=== PATIENT | female | born 1985 | race Caucasian/White ===

== ENCOUNTER 2018-12-28 13:49 | Day surgery (SDC) | payer OTHER ==
[~2018-12-28] VITALS: Ht 167.6 cm; Wt 59.2 kg
[~2018-12-28 13:49] MED LIST: CEPH500 PO; CRUTCH2 USE; FAMO20 PO; GI COCKTAIL PO; HYDACE5 PO; HYDHCL25 PO; HYDR1TAB94 PO; HYOS.125 SL; IBUP600 PO; IBUP800 PO; Norco 5-325 Ta1 EACH PO; ONDA4 PO; PHENERGAN25 MG RC; PROC10 PO; PROM25 PO; Pepcid20 MG PO; Pepcid40 MG PO; Prilosec20 MG PO; Protonix40 MG PO; SUCR1 PO; SUMA25 PO; TRAM50 PO; Zofran Odt8 MG PO
[2018-12-28] MEDS ORDERED: PROM25 (14:16)
--- NOTE | 2018-12-28 15:43 | NUR ---
12/28/18 1543 Mercedes Serrano S VITAL SIGNS CHARTED BY ORSC.NSC. ORSC[employer]RXS WAS SIGNED IN COMPUTER AT THE TIME SO WAS ACCIDENTALLY CHARTED ON HER NAME, [email or web address].
== END 2018-12-28 15:30 | disposition home or self-care (01) ==
LOC: ORSCSDS 13:49
PROVIDERS: Internal Medicine Gastroenterology
PROC: 0DB68ZX Excision of Stomach, Via Natural or Artificial Opening Endoscopic, Diagnostic (ICD-10-PCS; principal; 2018-12-28 15:00)
DX: R10.13 Epigastric pain (principal); R63.4 Abnormal weight loss; R11.2 Nausea with vomiting, unspecified; B96.81 Helicobacter pylori [H. pylori] as the cause of diseases classified elsewhere; K29.70 Gastritis, unspecified, without bleeding; F17.210 Nicotine dependence, cigarettes, uncomplicated; J45.909 Unspecified asthma, uncomplicated; Z79.899 Other long term (current) drug therapy
CPT/HCPCS: 88305; 88342; J2250; J2704; J7120

== ENCOUNTER → 2020-04-18 | Outpatient (CLI) | payer OTHER ==
[~2020-04-18] MED LIST changes: +PROM25
[2020-04-20 19:06] LABS: HPV 16 Negative (Negative); HPV 18 Negative (Negative); HPV OTHER HR TYPES Negative (Negative)
== END | disposition home or self-care (01) ==
LOC: LAB 16:25 → LAB SHORT 16:25
PROVIDERS: Obstetrics & Gynecology
DX: Z01.419 Encounter for gynecological examination (general) (routine) without abnormal findings (principal)
CPT/HCPCS: 87624; G0123

== ENCOUNTER 2021-01-23 06:24 | Emergency (ER) | payer OTHER ==
[~2021-01-23] VITALS: Ht 167.6 cm; Wt 54.9 kg
[2021-01-23 07:57] LABS: BASOPHILS ABSOLUTE AUTO 0.07 K/mm3 (0.00-0.23); BASOPHILS PERCENT AUTO 1 % (0-2); EOSINOPHILS ABSOLUTE AUTO 0.36 K/mm3 (0.00-0.68); EOSINOPHILS PERCENT AUTO 5 % (0-6); Hematocrit 40.5 % (33.0-51.0); Hemoglobin 13.9 g/dL (11.5-16.0); IMMATURE GRAN ABSOLUTE AUTO 0.01 K/mm3 (0.00-0.10); IMMATURE GRAN PERCENT AUTO 0 % (0-1); LYMPHOCYTES ABSOLUTE AUTO 3.18 K/mm3 (0.84-5.20); LYMPHOCYTES PERCENT AUTO 42 % (21-46); MONOCYTES PERCENT AUTO 7 % (4-13); Mean Corpuscular HGB 34.8 pg (26.0-34.0); Mean Corpuscular HGB Conc 34.3 g/dL (31.5-36.5); Mean Corpuscular Volume 101 fL (80-100); Mean Platelet Volume 9.6 fL (9.1-12.4); NEUTROPHILS ABSOLUTE AUTO 3.46 K/mm3 (1.96-9.15); NEUTROPHILS PERCENT AUTO 46 % (41-73); Platelet Count 278 K/mm3 (150-400); RDW Coefficient Variation 11.8 % (11.7-14.2); RDW Standard Deviation 43.9 fL (35.1-46.3); White Blood Cell Count 7.58 K/mm3 (4.00-11.30)
[2021-01-23 08:16] LABS: Alanine Aminotransfer (ALT/SGP 28 U/L (12-78); Albumin, Blood 3.5 g/dL (3.4-5.0); Albumin/Globulin Ratio 1.2 (0.8-1.8); Alk Phos 88 U/L (50-136); Anion Gap 4 mmol/L (6-16); Aspartate Aminotrans (AST/SGOT 17 U/L (12-37); Bilirubin, Total 0.7 mg/dL (0.1-1.0); Blood Urea Nitrogen 10 mg/dL (8-24); Bun/Creatinine Ratio 14.6 (12.0-20.0); CO2, Blood 27 mmol/L (21-32); Calcium, Blood 8.6 mg/dL (8.5-10.1); Chloride, Blood 109 mmol/L (98-108); Cholesterol 127 mg/dL (50-200); Creatinine, Blood 0.69 mg/dL (0.40-1.00); Glomerular Filtration Rate >60 (60-); Glucose, Blood 103 mg/dL (70-99); Potassium, Blood 3.3 mmol/L (3.5-5.5); Sodium, Blood 140 mmol/L (136-145); Total Protein, Blood 6.5 g/dL (6.4-8.2); Triglycerides 64 mg/dL (30-140)
[2021-01-23] MEDS ORDERED: ONDA4ODT MM (08:43)
[2021-01-23] MEDS ORDERED: Roxicodone5 MG PO (08:43)
== END 2021-01-23 09:31 | disposition home or self-care (01) ==
LOC: ER 06:24
PROVIDERS: Emergency Medicine
DX: K85.90 Acute pancreatitis without necrosis or infection, unspecified (principal); J45.909 Unspecified asthma, uncomplicated; E11.9 Type 2 diabetes mellitus without complications; F17.200 Nicotine dependence, unspecified, uncomplicated
CPT/HCPCS: 36415; 76705; 80053; 82465; 83690; 84478; 84703; 85025; 96374; 96375; 99284-25; A9270; J1885; J2405; J7030

== ENCOUNTER 2021-03-03 13:54 | Observation (INO) | payer OTHER ==
[~2021-03-03] VITALS: Ht 167.6 cm; Wt 59.0 kg
[~2021-03-03 13:54] MED LIST changes: +ONDA4ODT MM; +Roxicodone5 MG PO
[2021-03-03 14:24] LABS: BASOPHILS ABSOLUTE AUTO 0.07 K/mm3 (0.00-0.23); BASOPHILS PERCENT AUTO 1 % (0-2); EOSINOPHILS ABSOLUTE AUTO 0.25 K/mm3 (0.00-0.68); EOSINOPHILS PERCENT AUTO 3 % (0-6); Hematocrit 37.4 % (33.0-51.0); Hemoglobin 13.2 g/dL (11.5-16.0); IMMATURE GRAN ABSOLUTE AUTO 0.02 K/mm3 (0.00-0.10); IMMATURE GRAN PERCENT AUTO 0 % (0-1); LYMPHOCYTES ABSOLUTE AUTO 2.87 K/mm3 (0.84-5.20); LYMPHOCYTES PERCENT AUTO 31 % (21-46); MONOCYTES ABSOLUTE AUTO 0.69 K/mm3 (0.16-1.47); MONOCYTES PERCENT AUTO 8 % (4-13); Mean Corpuscular HGB 35.2 pg (26.0-34.0); Mean Corpuscular HGB Conc 35.3 g/dL (31.5-36.5); Mean Corpuscular Volume 100 fL (80-100); NEUTROPHILS ABSOLUTE AUTO 5.34 K/mm3 (1.96-9.15); NEUTROPHILS PERCENT AUTO 58 % (41-73); Platelet Count 290 K/mm3 (150-400); RDW Coefficient Variation 11.5 % (11.7-14.2); RDW Standard Deviation 41.9 fL (35.1-46.3); Red Blood Cell Count 3.75 M/mm3 (3.80-5.20); White Blood Cell Count 9.24 K/mm3 (4.00-11.30)
[2021-03-03 14:44] LABS: Alanine Aminotransfer (ALT/SGP 33 U/L (12-78); Albumin, Blood 3.2 g/dL (3.4-5.0); Albumin/Globulin Ratio 1.1 (0.8-1.8); Alk Phos 90 U/L (50-136); Anion Gap 3 mmol/L (6-16); Aspartate Aminotrans (AST/SGOT 26 U/L (12-37); Bilirubin, Total 0.8 mg/dL (0.1-1.0); Blood Urea Nitrogen 9 mg/dL (8-24); Bun/Creatinine Ratio 13.5 (12.0-20.0); CO2, Blood 26 mmol/L (21-32); Chloride, Blood 108 mmol/L (98-108); Creatinine, Blood 0.67 mg/dL (0.40-1.00); Ethanol (Alcohol), Blood, Med <3 mg/dL; Free Thyroxine 0.97 ng/dL (0.70-1.60); Glomerular Filtration Rate >60 (60-); Glucose, Blood 128 mg/dL (70-99); Potassium, Blood 3.7 mmol/L (3.5-5.5); Salicylate 2.3 mg/dL (2.8-20.0); Sodium, Blood 137 mmol/L (136-145); Total Protein, Blood 6.2 g/dL (6.4-8.2)
[2021-03-03 14:56] LABS: Acetaminophen, Random 101.7 ug/mL (10.0-30.0)
[2021-03-03 15:31] LABS: SARS-Cov-2 (COVID-19) PCR, MMC NEGATIVE (NEGATIVE)
[2021-03-03] MEDS ORDERED: SERT50 PO (19:33)
--- NOTE | 2021-03-04 03:07 | NUR ---
SHIFT SUMMARY A/OX3, PT SLEEPING MOST OF SHIFT. MOD SI PRECAUTIONS IN PLACE, PT DENIES ANY SUICIDAL THOUGHTS AT THIS TIME. LABILE MOOD WITH BRIEF PERIODS OF AGITATION D/T SI PRECAUTIONS AND POLICIES. VSS, NO ACUTE CHANGES AT THIS TIME. BED IN LOWEST POSITION WITH CALL LIGHT IN REACH. WILL CONTINUE TO MONITOR AND REPORT TO ONCOMING RN.
--- NOTE | 2021-03-04 06:06 | NUR ---
PT REFUSING AM LABS
--- NOTE | 2021-03-04 09:31 | NUR ---
UPDATE 03/04/21: PT. PRESENTED TO ED YESTERDAY VIA EMS AFTER OD OF TRAZADONE AND TYLENOL. PER CHART REVIEW, PT. INFORMED DR. WATKINS THAT OD WAS UNINTENTIONAL AND THAT SHE WAS HAVING A "BAD DAY." PT. WAS PLACED ON APPROPRIATE PRECAUTIONS DUE TO CONCERN FOR POTENTIAL RISK OF SI. [facility] [place] EVAL REQUESTED BY DR. WATKINS. PER CHART REVIEW, THIS AM PT. HAS REFUSED LABS. PT. HAS BEEN AGITATED THROUGHOUT HER HOSPITAL STAY. ACCUSING STAFF OFF TAKING HER PHONE AND FRUSTRATED WITH THE NEED FOR SAFETY PRECAUTIONS. PT. HAS BEEN IN CONTACT WITH HER . PT. POTENTIALLY APPROPRIATE FOR D/C WITHIN THE NEXT 24-48 HOURS. ANTICIPATE NEEDS AT TIME OF DISCHARGE TO INCLUDE: HOSPITAL F/U WITHIN 5-7 DAYS WITH PCP AND C F/U APPOINTMENT.
[2021-03-04 10:49] LABS: Source, Urine Clean Catch
[2021-03-04 10:54] LABS: Appearance, Urine Clear (Clear); Bilirubin, Urine Neg (Neg); Blood, Urine Neg (Neg); Color, Urine Yellow (P-Yellow); Glucose Qualitative, Urine Neg (Neg); Ketones, Urine Neg (Neg); Leukocyte Esterase, Urine Neg (Neg); Nitrite, Urine Neg (Neg); Protein, Urine Neg (Neg); Urobilinogen, Urine NORM (Normal)
--- NOTE | 2021-03-04 12:51 | NUR ---
Suicide safety charley interview and Plan completed. Pt reports "it was stupid" amnd is glad she did not . No previous attempts. Father found her being drowsy and called for help. 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 She relapsed in last month. She has 3 children 15, 10,9 and lives with her of 20 years. She does have anxiety issues and feels she has isolated herself to just "cookng and cleaning". She reports hisory of various family members that have from suicide, and her estranged mother was an addict. She reports her huusband and her were fighting prior to the attempt, as he learned of ehr relapse. Both had been in recovery. Brief counseling regarding deep breathing, strengths identification. She is interested in individual counseling. Recommend [facility] fol[facility]ow up appointment to be made prior to DC, with emphasis in substance abuse. Pt has ceased activities she used to enjoy of attending druze, attending [facility]. Pt was tearful at times when discussing how she has "lost herself" and does not engage in any activities that are just for her. Plan given to patient. Shelly Dunbar M.Ed., [facility], Behavior Health Director.
--- NOTE | 2021-03-04 13:01 | NUR ---
Patient was involved in safety planning and very open to planning for her wellness. She was afraid of having to attend groups, and voiced relief that individual therapy was available. She prefers if she could be seen in [place]. Pt reported she had just woken up this am when blood draw tried. She said she was not nice, and felt bad -but was glad the labs could be drawn again.
[2021-03-04 14:46] LABS: Acetaminophen, Random <2.0 ug/mL (10.0-30.0); Alanine Aminotransfer (ALT/SGP 36 U/L (12-78); Albumin, Blood 3.6 g/dL (3.4-5.0); Albumin/Globulin Ratio 0.9 (0.8-1.8); Alk Phos 103 U/L (50-136); Anion Gap 4 mmol/L (6-16); Aspartate Aminotrans (AST/SGOT 26 U/L (12-37); Bilirubin, Total 0.7 mg/dL (0.1-1.0); Blood Urea Nitrogen 9 mg/dL (8-24); Bun/Creatinine Ratio 12.4 (12.0-20.0); CO2, Blood 28 mmol/L (21-32); Calcium, Blood 8.4 mg/dL (8.5-10.1); Chloride, Blood 108 mmol/L (98-108); Creatinine, Blood 0.73 mg/dL (0.40-1.00); Globulin, Blood 3.8 g/dL (2.2-4.0); Glomerular Filtration Rate >60 (60-); Glucose, Blood 87 mg/dL (70-99); Potassium, Blood 3.5 mmol/L (3.5-5.5); Sodium, Blood 140 mmol/L (136-145); Total Protein, Blood 7.4 g/dL (6.4-8.2)
--- NOTE | 2021-03-04 15:00 | NUR ---
Spoke with Behavioral Health Director Shelly Dunbar regarding her care this am. Patient was pleasant evaluation during [facility] eval. Advised that she has experienced a relapse with methamphetamine use roughly 30 days ago after 7 years clean. Had argument yesterday with her regarding relapse which led to OD. Pt. open to one on one substance abuse canceling. Declines group sessions. Per Shelly, pt. likely to be released from a psych standpoint as she has declined and intent to harm herself at this time. She is also seeking help. Patient's father Larry called to check on patient. He advised that he will provide transport for pt. if her is unavailable when she is discharged. Pt. note yet appropriate for discharge from clinical standpoint. Pt. declined blood draw this am. Is now agreeable to have labs drawn. Anticipated needs at time of discharge to include: Substance abuse counseling through [facility] ([facility] preferred) and hospital F/U with PCP within 5-7 days post discharge.
--- NOTE | 2021-03-04 15:47 | NUR ---
PT IS ALERT ORIENTED X 4, PT DENIES PAIN,N/V,SOB,AND ANY SUICIDAL IDEAS,VERY PLEASANT AND COORPORATIVE, PT STATED IT WAS A STUPID IDEA . PT IS IN BED,BED IN LOW POSITION, WILL CONTINUE TO MONITOR
--- NOTE | 2021-03-04 16:59 | NUR ---
Per Dr. Wynn, pt. appropriate for discharge. I was unable to make it to patient's room prior to discharge. Pt. will need appt. with [facility] for substance abuse counceling and hospital F/U with PCP within the next 5-7 days. DARLENE team and PCP notified.
[2021-03-04 19:22] LABS: U Amphetamine Screen DETECTED; U Barbituate Screen Not Detected; U Benzodiazapine Screen Not Detected; U Buprenorphine Screen Not Detected; U Cannabinoids Screen DETECTED; U Cocaine Screen Not Detected; U Methadone Screen Not Detected; U Methamphetamine Screen DETECTED; U Opiates Screen Not Detected; U Oxycodone Screen Not Detected; U Phencyclidine Screen Not Detected; U Propoxyphene Screen Not Detected
== END 2021-03-04 16:39 | disposition home or self-care (01) ==
LOC: ER 13:54 → MEDS 13:55
PROVIDERS: Emergency Medicine; Internal Medicine; ADMIT Family Medicine
DX: T43.211A Poisoning by selective serotonin and norepinephrine reuptake inhibitors, accidental (unintentional), initial encounter (principal); T39.1X1A Poisoning by 4-Aminophenol derivatives, accidental (unintentional), initial encounter; R41.82 Altered mental status, unspecified; F12.90 Cannabis use, unspecified, uncomplicated; F19.10 Other psychoactive substance abuse, uncomplicated; Z91.040 Latex allergy status; J45.909 Unspecified asthma, uncomplicated; E11.9 Type 2 diabetes mellitus without complications; F17.210 Nicotine dependence, cigarettes, uncomplicated; Z63.8 Other specified problems related to primary support group; Z20.822 Contact with and (suspected) exposure to COVID-19
CPT/HCPCS: 36415; 80053; 81003; 84439; 84443; 85025; 93005; 93010; G0480; J7030; U0004

== ENCOUNTER → 2021-03-05 | Outpatient (CLI) | payer OTHER ==
[~2021-03-05] MED LIST changes: +SERT50 PO
== END | disposition home or self-care (01) ==
LOC: LAB SHORT 18:50 → LAB 18:50
DX: Z51.81 Encounter for therapeutic drug level monitoring (principal); Z79.899 Other long term (current) drug therapy
CPT/HCPCS: G0480

== ENCOUNTER → 2021-03-13 | Outpatient (CLI) | payer OTHER ==
[2021-03-13 13:29] LABS: Source, Urine Clean Catch
[2021-03-13 14:26] LABS: Bacteria Not Seen /hpf; Red Blood Cells, Urine Rare /hpf (0-2); Squamous Epithelial Cells Many /hpf (Few); White Blood Cells, Urine 0-2 /hpf (0-5)
== END | disposition home or self-care (01) ==
LOC: LAB 13:22 → LAB SHORT 13:22
PROVIDERS: Family Medicine
DX: R10.9 Unspecified abdominal pain (principal); Z79.899 Other long term (current) drug therapy
CPT/HCPCS: 81015

== ENCOUNTER 2021-11-30 22:27 | Inpatient (IN) | payer OTHER ==
[~2021-11-30] VITALS: Ht 167.6 cm; Wt 59.0 kg
[~2021-11-30 22:27] MED LIST changes: +BUPRENORPHIN-N1 EAC1 SL; +DICY20 PO; +PROM12.5S PR
[2021-11-30 22:55] LABS: BASOPHILS ABSOLUTE AUTO 0.05 K/mm3 (0.00-0.23); BASOPHILS PERCENT AUTO 0 % (0-2); EOSINOPHILS ABSOLUTE AUTO 0.33 K/mm3 (0.00-0.68); EOSINOPHILS PERCENT AUTO 3 % (0-6); Hematocrit 37.1 % (33.0-51.0); Hemoglobin 12.5 g/dL (11.5-16.0); IMMATURE GRAN ABSOLUTE AUTO 0.05 K/mm3 (0.00-0.10); IMMATURE GRAN PERCENT AUTO 0 % (0-1); LYMPHOCYTES ABSOLUTE AUTO 2.06 K/mm3 (0.84-5.20); LYMPHOCYTES PERCENT AUTO 18 % (21-46); MONOCYTES ABSOLUTE AUTO 0.78 K/mm3 (0.16-1.47); MONOCYTES PERCENT AUTO 7 % (4-13); Mean Corpuscular HGB Conc 33.7 g/dL (31.5-36.5); Mean Corpuscular Volume 101 fL (80-100); Mean Platelet Volume 8.5 fL (9.1-12.4); NEUTROPHILS ABSOLUTE AUTO 8.52 K/mm3 (1.96-9.15); NEUTROPHILS PERCENT AUTO 72 % (41-73); Platelet Count 617 K/mm3 (150-400); RDW Coefficient Variation 12.7 % (11.7-14.2); Red Blood Cell Count 3.68 M/mm3 (3.80-5.20); White Blood Cell Count 11.79 K/mm3 (4.00-11.30)
[2021-11-30 23:14] LABS: Albumin, Blood 2.6 g/dL (3.4-5.0); Albumin/Globulin Ratio 0.6 (0.8-1.8); Bilirubin, Total 0.5 mg/dL (0.1-1.0); Bun/Creatinine Ratio 11.7 (12.0-20.0); Calcium, Blood 9.1 mg/dL (8.5-10.1); Creatinine, Blood 0.6 mg/dL (0.40-1.00); Globulin, Blood 4.6 g/dL (2.2-4.0); Potassium, Blood 3.7 mmol/L (3.5-5.5); Total Protein, Blood 7.2 g/dL (6.4-8.2)
[2021-12-01 01:06] LABS: Bilirubin, Urine Neg (Neg); Blood, Urine Neg (Neg); Glucose Qualitative, Urine Neg (Neg); Ketones, Urine Neg (Neg); Leukocyte Esterase, Urine Neg (Neg); Nitrite, Urine Neg (Neg); Protein, Urine 1+ (Neg); Urobilinogen, Urine NORM (Normal)
[2021-12-01 01:12] LABS: Appearance, Urine Clear (Clear); Color, Urine Yellow (P-Yellow)
[2021-12-01 03:48] LABS: Influenza A, PCR NEGATIVE (NEGATIVE); Influenza B, PCR NEGATIVE (NEGATIVE); Resp Syncytial Virus, PCR NEGATIVE (NEGATIVE); SARS-Cov-2 (COVID-19) PCR, MMC NEGATIVE (NEGATIVE)
[2021-12-01 04:54] LABS: BASOPHILS ABSOLUTE AUTO 0.06 K/mm3 (0.00-0.23); BASOPHILS PERCENT AUTO 1 % (0-2); EOSINOPHILS ABSOLUTE AUTO 0.36 K/mm3 (0.00-0.68); EOSINOPHILS PERCENT AUTO 3 % (0-6); Hematocrit 33.7 % (33.0-51.0); IMMATURE GRAN ABSOLUTE AUTO 0.05 K/mm3 (0.00-0.10); IMMATURE GRAN PERCENT AUTO 1 % (0-1); LYMPHOCYTES ABSOLUTE AUTO 2.28 K/mm3 (0.84-5.20); LYMPHOCYTES PERCENT AUTO 22 % (21-46); MONOCYTES ABSOLUTE AUTO 0.68 K/mm3 (0.16-1.47); MONOCYTES PERCENT AUTO 6 % (4-13); Mean Corpuscular HGB 33.5 pg (26.0-34.0); Mean Corpuscular HGB Conc 32.6 g/dL (31.5-36.5); Mean Corpuscular Volume 103 fL (80-100); Mean Platelet Volume 8.8 fL (9.1-12.4); NEUTROPHILS ABSOLUTE AUTO 7.16 K/mm3 (1.96-9.15); NEUTROPHILS PERCENT AUTO 68 % (41-73); Platelet Count 545 K/mm3 (150-400); RDW Coefficient Variation 12.6 % (11.7-14.2); RDW Standard Deviation 47.8 fL (35.1-46.3); Red Blood Cell Count 3.28 M/mm3 (3.80-5.20); White Blood Cell Count 10.59 K/mm3 (4.00-11.30)
[2021-12-01 05:17] LABS: Albumin, Blood 2.1 g/dL (3.4-5.0); Albumin/Globulin Ratio 0.6 (0.8-1.8); Bilirubin, Total 0.6 mg/dL (0.1-1.0); Bun/Creatinine Ratio 10.8 (12.0-20.0); Calcium, Blood 8.1 mg/dL (8.5-10.1); Creatinine, Blood 0.56 mg/dL (0.40-1.00); Globulin, Blood 3.7 g/dL (2.2-4.0); Potassium, Blood 3.3 mmol/L (3.5-5.5); Total Protein, Blood 5.8 g/dL (6.4-8.2)
--- NOTE | 2021-12-01 07:47 | NUR ---
summary pt admitted per er with distended abd and pain post surgery earlier in week for perforated ulcer-surery was in [place]. pt groggy.answere some questions then falls to sleep.pt inconsistent with answers at time. i was completing admit assess and computer locked me out. will not allow me back in-day rn bela to complete. pt reports if surgery was needed, she would want to go back to [place] for sugery.day rn aware.
--- NOTE | 2021-12-01 15:58 | NUR ---
SHIFT SUMMARY PT A&OX4, VSS/RA, ZOE PO CLEAR LIQUID DIET, VOIDING WELL, 3 BMS TODAY. PAIN MANAGED WITH 5 MG OXY AND 25 FENT Q4 PRN. ADMITTED FOR POSTOP ILEUS AND ABSCESS, GEN SURGERY CONSULT: NO SURGICAL INTERVENTION PLANNED AT THIS TIME. PT IS POD6 PERF GASTRIC ULCER, HAS NICOLÁS MIDLINE LAB[employer] BEAM HOUSE; SURGERY DONE [facility]. WILL REPORT TO ONCOMING NOC RN.
[2021-12-01] MEDS ORDERED: PANTOPRAZOLE SO40 M1 PO (16:37)
[2021-12-01] MEDS ORDERED: Acetaminophen650 M1 PO (16:38)
[2021-12-01] MEDS ORDERED: Bentyl20 MG PO (16:40)
[2021-12-01] MEDS ORDERED: CEFD300 PO (16:40)
[2021-12-01] MEDS ORDERED: METR500 PO (16:41)
[2021-12-01] MEDS ORDERED: OXYC5 PO (16:42)
[2021-12-01] MEDS ORDERED: VORI200 PO (16:43)
[2021-12-02 03:55] LABS: BASOPHILS ABSOLUTE AUTO 0.06 K/mm3 (0.00-0.23); BASOPHILS PERCENT AUTO 1 % (0-2); EOSINOPHILS PERCENT AUTO 3 % (0-6); Hematocrit 34.1 % (33.0-51.0); Hemoglobin 11.2 g/dL (11.5-16.0); IMMATURE GRAN ABSOLUTE AUTO 0.03 K/mm3 (0.00-0.10); IMMATURE GRAN PERCENT AUTO 0 % (0-1); LYMPHOCYTES ABSOLUTE AUTO 2.22 K/mm3 (0.84-5.20); LYMPHOCYTES PERCENT AUTO 23 % (21-46); MONOCYTES ABSOLUTE AUTO 0.58 K/mm3 (0.16-1.47); MONOCYTES PERCENT AUTO 6 % (4-13); Mean Corpuscular HGB 33.5 pg (26.0-34.0); Mean Corpuscular HGB Conc 32.8 g/dL (31.5-36.5); Mean Corpuscular Volume 102 fL (80-100); Mean Platelet Volume 8.4 fL (9.1-12.4); NEUTROPHILS ABSOLUTE AUTO 6.53 K/mm3 (1.96-9.15); NEUTROPHILS PERCENT AUTO 67 % (41-73); Platelet Count 621 K/mm3 (150-400); RDW Coefficient Variation 12.5 % (11.7-14.2); RDW Standard Deviation 46.9 fL (35.1-46.3); Red Blood Cell Count 3.34 M/mm3 (3.80-5.20); White Blood Cell Count 9.72 K/mm3 (4.00-11.30)
[2021-12-02 04:19] LABS: Bun/Creatinine Ratio 6.4 (12.0-20.0); Calcium, Blood 8.5 mg/dL (8.5-10.1); Creatinine, Blood 0.47 mg/dL (0.40-1.00); Potassium, Blood 4.2 mmol/L (3.5-5.5)
--- NOTE | 2021-12-02 06:09 | NUR ---
PT HAVING BMS TONIGHT.ALTHOUGH,STILL REQUIRING IV PAIN MEDS AT TIMES AND IV ZOFRAN FOR NAUSEA X2.PT DOES HAVE HX OF ANXIETY AND REPORTS ANXIETY REGARDING POSSIBILITY OF GOING HOME SOON.SLEEPING QUIETLY AT THIS TIME.
[2021-12-02 09:44] LABS: International Normalized Ratio 1.04; Prothrombin Time Results 10.9 Sec (9.7-11.5)
--- NOTE | 2021-12-02 15:11 | NUR ---
Spritual care consult received and processed. Patient is just returning to her rm after a failed attempt at a procedure. Pt is defeated and exhausted. Pt reveals that she has low coping skills and unhelpful yet well meaning resources. She talks about how spun out she is over having complications with her health. I explore with her some mindfulness practices and breathing techniques which put her to sleep (along with the Ativan given earlier). Pt becomes so sleepy that she begins to spill her soup on the way to her mouth. I help her return her soup to the tray and allow to rest. Spiritual care will be available next day.
--- NOTE | 2021-12-02 18:16 | NUR ---
SHIFT SUMMARY ANXIOUS THROUGHOUT SHIFT. TOLERATING SIPS OF FULL LIQUIDS. REPORTS NAUSEA AND BACK AND ABD PAIN. MEDICATED PER EMAR. BOWEL CARE STARTED. IV FLUIDS RUNNING. VOIDING WELL. REPORTS BOWEL MOVEMENT AND GAS. PLAN FOR DRAIN OF FLUID COLLECTION IN PELVIS BY RADIOLOGY TOMORROW 12/03/21. SEEN BY SPIRITUAL CARE THIS SHIFT. PALLIATIVE CARE CONSULTED AND WILL SEE TOMORROW AM.
--- NOTE | 2021-12-03 04:57 | NUR ---
SHIFT SUMMARY NO ACUTE CHANGES. PT CONTINUES TO HAVE CRAMPING ABD PAIN. PT REPORTS FLATUS, BUT NO BMS THIS SHIFT. NICOLÁS TO ABD REMAIN WASHROOM OPERATOR AND CDI. NPO AT MIDNIGHT FOR IR DRAIN PLACEMENT TODAY. IVF INFUSING PER ORDERS. 1 ROXICODONE + TYLENOL FOR PAIN. PT STILL VERY ANXIOUS AND EMOTIONAL ABOUT TREATMENT PLAN. SUPPORT PRN. USES CALL LIGHT APPROPRIATELY.
--- NOTE | 2021-12-03 08:52 | NUR ---
REFUSING CARE PT STATES SHE IS REFUSING TO HAVE THE PLANNED DRAIN PLACED AGAIN TODAY.
--- NOTE | 2021-12-03 09:47 | NUR ---
Spiritual Care Referral follow Up. Pt. is sitting up "Tanzanian Style" in bed and rocking. Pt. welcomes my visit, and verbalizes gratitude for [employer]ant[employer] Alejo's referral to have this hand engraver return. Pt. is unsettled by unclear diagnosis, and lack of information. Pt. displays evidence of increased discomfort. Pt. also verbalized a lack of family support, and a broken family system. Through a calming presence and theraputic listening, Pt. displays evidence of reduced anxiety. With Pts. permission, prayed with Pt. Pt. verbalized gratitude for the spiritau care visit.
--- NOTE | 2021-12-03 09:55 | NUR ---
NEW POLST completed with pt. Proxy decision maker is HAMILTON Weems, cousin to pt. . Pt requersts Full Code and full treatment for duration of time that she has normal brain activity detected. Pal Care visit made to complete a POLST and review completion of an AD with pt at her request. Pt had a spiritual care visit just prior to my visit. Pt sitting cross-legged in bed and rocked back and forth t/o most of visit. When she focused on conversation re: advanced care planning and AD she stopped rocking. She has vacilated in past 24 hours whether or not to proceed with procedure that is scary and anxiety producing to her. This morning she has decided against it. She wants to name a surrogate decision maker in the event that she is unable to speak for herself. She does not want to burden her father with that. He is her primary family member locally. She named her Cousin, HAMILTON Weems, as her proxy decision maker. HAMILTON resides in [facility]. She does not want her estranged or ex- to have any information or say in her medical decision making. This was of great concern to her. Pt's proxy lives out of state and pt did not have witnesses locally to complete an AD with. We reviewed a blank one and how to complete it. I placed a blank AD in pt's belongings bag so she could review with her cousin and dad and complete at a later date. Pt expressed thanks for getting the POLST done and her proxy decision maker documented.
--- NOTE | 2021-12-03 11:11 | NUR ---
PATIENT IS AGREABLE TO THE DRAIN PLACEMENT TODAY. PT IS STILL VERY ANXIOUS ABOUT IT. PO ATIVAN READY JUST PRIOR TO PROCEDURE
--- NOTE | 2021-12-03 15:15 | NUR ---
POST DRAIN PLACEMENT VERY TEARFULLY TRANSFERS SELF FROM GOURNEY TO BED. URECIL BAG w/ SS FLUID TO R BUTTOCK; COMPRESSED. KPAD TO BUTTOCK, REPOSITIONS SELF TO L SIDE. EMOTIONAL & UPSET SHE IS IN PAIN. REPEATS "OW" OVER & OVER AGAIN. ICE WATER & PO MEDS GIVEN.
--- NOTE | 2021-12-03 18:49 | NUR ---
SHIFT SUMMARY PT VERY ANXIOUS TODAY, REPORTS PROCEDURE NOT HAPPENING THEN DECIDED IT WAS AND INSTRUCTED NURSING STAFF AND EFM PROVIDER TO MAKE SURE IT HAPPENS EVEN IF SHE SAYS NO IN THE FUTURE. PT MEDICATED WITH ATIVAN ORDERED JUST PRIOR TO PROCEDURE FOR ANXIETY, DRAIN PLACED AND SAMPLE SENT TO LAB, PT RETURNED TO ROOM VERY PAINFUL AND WAS MEDICATED PER EMAR, PT SO AT BEDSIDE OFFERING COMFORT AND SUPPORT. SURGEON REMOVED NICOLÁS FROM MIDLINE INCISION AND PLACED STERI STRIPS. PT FED DINNER PER SURGEON OK AND TOLERATED WELL. NO OTHER EVENTS THIS SHIFT, CALL LIGHT IN REACH, WILL CTM AND REPORT TO ONCOMING NOC RN.
--- NOTE | 2021-12-04 04:08 | NUR ---
SHIFT SUMMARY NO ACUTE CHANGES. 1 ROXICODONE + TYLENOL FOR PAIN MANAGEMENT. TRANSGLUTEAL DRAIN TO RIGHT BUTTOCK REMAINS INTACT AND PUTTING OUT LIGHT COSBY/BROWN DRAINAGE. 1 SBA TO BATHROOM. ABX PER ORDERS. CALL LIGHT WITHIN REACH.
--- NOTE | 2021-12-04 16:59 | NUR ---
SUMMARY: PT IS POD1 PIGTAIL DRAIN PLACEMENT. NO ACUTE CHANGE TODAY, VSS, A/O. PT SLEEPING OFTEN TODAY AND IF NOT SLEEPING THAN OUTSIDE WITH BOYFRIEND. SURGICAL SITES WNL. MINIMAL SS OUTPUT FROM DRAIN. PT CONTINUES TO BE PAINFUL, BUT X2 ROXICODONE AND TYLENOL HAS SEEMED TO REDUCE PAIN. NO SAFETY CONCERNS, WILL CTM AND REPORT TO EDISON HUGHES.
--- NOTE | 2021-12-05 05:27 | NUR ---
PT IS A&OX4, SBA TO BR AND IS ABLE TO MAKE NEEDS KNOWN. PT HAS DRAIN IN R TRANSGLUTEAL DRAIN, PUTTING OR SCANT SEROSANG DRAINAGE. NO BM THIS SHIFT, PT COMPLAINS OF ABD PAIN AND STATES "I CAN FEEL THE DRAIN IN ME," AND "THE DRAIN IS CAUSING ME PAIN." PRN OXY 10 MG GIVEN TO PT WELL FENTANYL AND ZOFRAN. PT ABLE TO AMBULATE THE HALLS INDEPENDENTLY PRIOR TO SLEEPING. RESTS BETWEEN CARES, SLEEPS 6+ HOURS. WILL CONTINUE TO MONITOR.
--- NOTE | 2021-12-05 07:52 | NUR ---
pt laying in bed awake a/ox3, cooperative with care, states she's in 9/10 pain, had a really rough night last night, is scheduled to go to ct this am, medicated with fentanyl for pain relief, having axiety about her condition reports she doesn't feel like she's getting better, and about the ct scan, lungs are clear a bit dim in bases, denies cough, on r/a, resp even and unlabored, no cough noted, hrr, no edema noted, ppp+2, cap refill <3sec, v stable, afebrile, piv site to rac is clear and patent, abd flat soft tender, has drain to buttock, midline incision, healing, reports no bm for two days, skin c/w/d, maew, able to stand and ambulate to bathroom, call light in reach, left for ct via wheelchair.
--- NOTE | 2021-12-05 13:39 | NUR ---
DRAIN REMOVAL DR REYES AT BEDSIDE, DRAIN REMOVED. PATIENT ZOE WELL.
--- NOTE | 2021-12-05 13:50 | NUR ---
pt drain tube was pulled, she is going to be discharged to home.
[2021-12-05] MEDS ORDERED: Ativan1 MG PO (14:22)
[2021-12-05] MEDS ORDERED: AMOCLA875 PO (14:23)
--- NOTE | 2021-12-05 14:56 | NUR ---
Pt has been discharged to home, removed iv intact, went over her discharge paperwork, she verbalized understanding, hard copy scripts placed in her discharge pkt, she is aware, new medication called into [facility], pt waiting on a ride.
--- NOTE | 2021-12-05 16:24 | NUR ---
PT LEFT VIA WHEELCHAIR WITH HER S.O. WITH ALL BELONGINGS.
== END 2021-12-05 16:27 | disposition home or self-care (01) | DRG 920 ==
LOC: ER 22:27 → SURS 12-01 01:39 → MEDS 12-01 01:39 → SURS 12-01 03:35
PROVIDERS: Emergency Medicine; Internal Medicine; Surgery; ADMIT Internal Medicine
PROC: 0W9J30Z Drainage of Pelvic Cavity with Drainage Device, Percutaneous Approach (ICD-10-PCS; principal; 2021-12-03)
DX: K91.872 Postprocedural seroma of a digestive system organ or structure following a digestive system procedure (principal); K91.89 Other postprocedural complications and disorders of digestive system; K56.7 Ileus, unspecified; Z20.822 Contact with and (suspected) exposure to COVID-19; N73.8 Other specified female pelvic inflammatory diseases; E11.9 Type 2 diabetes mellitus without complications; J45.909 Unspecified asthma, uncomplicated; F17.210 Nicotine dependence, cigarettes, uncomplicated; Z98.51 Tubal ligation status; Z91.040 Latex allergy status; Z79.899 Other long term (current) drug therapy; Y83.8 Other surgical procedures as the cause of abnormal reaction of the patient, or of later complication, without mention of misadventure at the time of the procedure
CPT/HCPCS: 0241U; 36415; 49405; 72192; 74176; 74177; 80048; 80053; 81025; 83605; 83690; 85025; 85610; 87070; 87075; 87205; 96361; 96374; 96375; 99284-25; A9270; C9113; J1170; J1650; J1790; J1885; J2060; J2405; J2543; J3010; J3480; J7030; Q9967

== ENCOUNTER 2022-09-16 16:54 | Emergency (ER) | payer OTHER ==
[~2022-09-16] VITALS: Ht 167.6 cm; Wt 68.0 kg
[~2022-09-16 16:54] MED LIST changes: +AMOCLA875 PO; +Acetaminophen650 M1 PO; +Ativan1 MG PO; +Bentyl20 MG PO; +CEFD300 PO; +METR500 PO; +OXYC5 PO; +PANTOPRAZOLE SO40 M1 PO; +VORI200 PO
[2022-09-16] MEDS ORDERED: CRUTCH2 XX (18:53)
[2022-09-16] MEDS ORDERED: IBUP800 PO (19:03)
[2022-09-16] MEDS ORDERED: HYDR1TAB94 PO (19:03)
== END 2022-09-16 19:21 | disposition home or self-care (01) ==
LOC: ER 16:54
DX: S82.61XA Displaced fracture of lateral malleolus of right fibula, initial encounter for closed fracture (principal); E11.9 Type 2 diabetes mellitus without complications; F17.210 Nicotine dependence, cigarettes, uncomplicated; X50.0XXA Overexertion from strenuous movement or load, initial encounter; Z79.899 Other long term (current) drug therapy; Z91.040 Latex allergy status
CPT/HCPCS: 73610; A9270

== ENCOUNTER 2025-01-05 18:00 | Emergency (ER) | payer OTHER ==
[~2025-01-05] VITALS: Ht 167.6 cm; Wt 65.8 kg
[~2025-01-05 18:00] MED LIST changes: +CRUTCH2 XX
[2025-01-05 18:24] VITALS: BP 120/85
[2025-01-05] MEDS ORDERED: Ondansetron HCl 2 MG / ML 2ML Vial IV PRN (18:30)
[2025-01-05 19:12] LABS: BASOPHILS ABSOLUTE AUTO 0.04 K/mm3 (0.00-0.23); BASOPHILS PERCENT AUTO 1 % (0-2); EOSINOPHILS ABSOLUTE AUTO 0.08 K/mm3 (0.00-0.68); EOSINOPHILS PERCENT AUTO 1 % (0-6); Hematocrit 41.5 % (33.0-51.0); Hemoglobin 14.4 g/dL (11.5-16.0); IMMATURE GRAN ABSOLUTE AUTO 0.01 K/mm3 (0.00-0.10); IMMATURE GRAN PERCENT AUTO 0 % (0-1); LYMPHOCYTES ABSOLUTE AUTO 1.71 K/mm3 (0.84-5.20); LYMPHOCYTES PERCENT AUTO 29 % (21-46); MONOCYTES ABSOLUTE AUTO 0.47 K/mm3 (0.16-1.47); MONOCYTES PERCENT AUTO 8 % (4-13); Mean Corpuscular HGB Conc 34.7 g/dL (31.5-36.5); Mean Corpuscular Volume 94 fL (80-100); NEUTROPHILS ABSOLUTE AUTO 3.52 K/mm3 (1.96-9.15); NEUTROPHILS PERCENT AUTO 60 % (41-73); NRBC ABSOLUTE 0.00 K/mm3 (0.00-0.02); NRBC Auto 0.0 /100 WBC (0.0-0.2); Platelet Count 273 K/mm3 (150-400); RDW Coefficient Variation 11.9 % (11.7-14.2); RDW Standard Deviation 41.1 fL (35.1-46.3)
[2025-01-05 19:43] LABS: Alanine Aminotransfer (ALT/SGP 27.0 U/L (12-78); Albumin, Blood 3.8 g/dL (3.4-5.0); Albumin/Globulin Ratio 1.0 (0.8-1.8); Anion Gap 8.0 mmol/L (3-11); Aspartate Aminotrans (AST/SGOT 23.0 U/L (12-37); Bilirubin, Total 1.0 mg/dL (0.1-1.0); Blood Urea Nitrogen 9.0 mg/dL (8-24); CO2, Blood 24.0 mmol/L (21-32); Calcium, Blood 8.5 mg/dL (8.5-10.1); Chloride, Blood 109.0 mmol/L (98-108); Creatinine, Blood 0.64 mg/dL (0.40-1.00); Globulin, Blood 3.8 g/dL (2.2-4.0); Glucose, Blood 115.0 mg/dL (70-99); Potassium, Blood 3.9 mmol/L (3.5-5.5); Sodium, Blood 137.0 mmol/L (136-145); Total Protein, Blood 7.6 g/dL (6.4-8.2)
[2025-01-05] MEDS ORDERED: NS 1,000 ML IV SCH (21:20)
[2025-01-05] MEDS ORDERED: FAMO20 PO (22:50)
[2025-01-05] MEDS ORDERED: ONDA4 PO (22:50)
== END 2025-01-05 23:06 | disposition home or self-care (01) ==
LOC: ER 18:00
PROVIDERS: Emergency Medicine
DX: R10.13 Epigastric pain (principal); E11.9 Type 2 diabetes mellitus without complications; J45.909 Unspecified asthma, uncomplicated; F17.210 Nicotine dependence, cigarettes, uncomplicated; Z79.899 Other long term (current) drug therapy; Z91.040 Latex allergy status
CPT/HCPCS: 36415; 74177; 80053; 83690; 85025; 96374; 99284-25; A9270; J2405; J7030; Q9967

== ENCOUNTER 2025-02-14 09:35 | Emergency (ER) | payer OTHER ==
[~2025-02-14] VITALS: Ht 162.6 cm; Wt 70.3 kg
[2025-02-14 10:32] VITALS: BP 109/77
== END 2025-02-14 13:53 | disposition home or self-care (01) ==
LOC: ER 09:35
DX: S70.02XA Contusion of left hip, initial encounter (principal); E11.9 Type 2 diabetes mellitus without complications; J45.909 Unspecified asthma, uncomplicated; F17.210 Nicotine dependence, cigarettes, uncomplicated; Z91.040 Latex allergy status; Z79.899 Other long term (current) drug therapy; W18.30XA Fall on same level, unspecified, initial encounter
CPT/HCPCS: 73502; 99283-25

== ENCOUNTER → 2025-02-28 | Outpatient (CLI) | payer OTHER | LOC: LAB SHORT 10:37 → LAB 10:37 | DX: R82.90 Unspecified abnormal findings in urine (principal) | CPT/HCPCS: 87086 ==

== ENCOUNTER → 2025-02-28 | Outpatient (CLI) | payer OTHER ==
[2025-02-28 10:58] LABS: BASOPHILS ABSOLUTE AUTO 0.06 K/mm3 (0.00-0.23); BASOPHILS PERCENT AUTO 1 % (0-2); EOSINOPHILS ABSOLUTE AUTO 0.18 K/mm3 (0.00-0.68); EOSINOPHILS PERCENT AUTO 3 % (0-6); Hematocrit 41.5 % (33.0-51.0); Hemoglobin 13.7 g/dL (11.5-16.0); IMMATURE GRAN ABSOLUTE AUTO 0.02 K/mm3 (0.00-0.10); IMMATURE GRAN PERCENT AUTO 0 % (0-1); LYMPHOCYTES ABSOLUTE AUTO 2.33 K/mm3 (0.84-5.20); LYMPHOCYTES PERCENT AUTO 36 % (21-46); MONOCYTES ABSOLUTE AUTO 0.27 K/mm3 (0.16-1.47); MONOCYTES PERCENT AUTO 4 % (4-13); Mean Corpuscular HGB Conc 33.0 g/dL (31.5-36.5); Mean Corpuscular Volume 99 fL (80-100); NEUTROPHILS ABSOLUTE AUTO 3.66 K/mm3 (1.96-9.15); NEUTROPHILS PERCENT AUTO 56 % (41-73); NRBC ABSOLUTE 0.00 K/mm3 (0.00-0.02); NRBC Auto 0.0 /100 WBC (0.0-0.2); Platelet Count 247 K/mm3 (150-400); RDW Coefficient Variation 12.3 % (11.7-14.2); RDW Standard Deviation 44.5 fL (35.1-46.3)
[2025-02-28 11:11] LABS: Alanine Aminotransfer (ALT/SGP 31.0 U/L (12-78); Albumin, Blood 3.6 g/dL (3.4-5.0); Albumin/Globulin Ratio 1.0 (0.8-1.8); Anion Gap 14.0 mmol/L (3-11); Aspartate Aminotrans (AST/SGOT 17.0 U/L (12-37); Bilirubin, Total 0.8 mg/dL (0.1-1.0); Blood Urea Nitrogen 11.0 mg/dL (8-24); CO2, Blood 26.0 mmol/L (21-32); Calcium, Blood 9.0 mg/dL (8.5-10.1); Chloride, Blood 104.0 mmol/L (98-108); Creatinine, Blood 0.75 mg/dL (0.40-1.00); Globulin, Blood 3.5 g/dL (2.2-4.0); Glucose, Blood 136.0 mg/dL (70-99); Potassium, Blood 3.7 mmol/L (3.5-5.5); Sodium, Blood 140.0 mmol/L (136-145); Total Protein, Blood 7.1 g/dL (6.4-8.2)
== END ==
LOC: LAB 10:54 → LAB SHORT 10:54
PROVIDERS: Chiropractor
DX: R10.9 Unspecified abdominal pain (principal); R73.9 Hyperglycemia, unspecified
CPT/HCPCS: 80053; 83036; 83690; 85025

== ENCOUNTER 2025-03-21 04:46 | Emergency (ER) | payer OTHER ==
[~2025-03-21] VITALS: Ht 167.6 cm; Wt 72.6 kg
[2025-03-21] MEDS ORDERED: Ketorolac Tromethamine 30mg Vial IV ONE (05:05)
[2025-03-21 05:18] LABS: BASOPHILS ABSOLUTE AUTO 0.07 K/mm3 (0.00-0.23); BASOPHILS PERCENT AUTO 1 % (0-2); EOSINOPHILS ABSOLUTE AUTO 0.18 K/mm3 (0.00-0.68); EOSINOPHILS PERCENT AUTO 3 % (0-6); Hematocrit 38.6 % (33.0-51.0); Hemoglobin 13.5 g/dL (11.5-16.0); IMMATURE GRAN ABSOLUTE AUTO 0.01 K/mm3 (0.00-0.10); IMMATURE GRAN PERCENT AUTO 0 % (0-1); LYMPHOCYTES ABSOLUTE AUTO 2.45 K/mm3 (0.84-5.20); LYMPHOCYTES PERCENT AUTO 35 % (21-46); MONOCYTES ABSOLUTE AUTO 0.58 K/mm3 (0.16-1.47); MONOCYTES PERCENT AUTO 8 % (4-13); Mean Corpuscular HGB Conc 35.0 g/dL (31.5-36.5); Mean Corpuscular Volume 93 fL (80-100); NEUTROPHILS ABSOLUTE AUTO 3.81 K/mm3 (1.96-9.15); NEUTROPHILS PERCENT AUTO 54 % (41-73); NRBC ABSOLUTE 0.00 K/mm3 (0.00-0.02); NRBC Auto 0.0 /100 WBC (0.0-0.2); Platelet Count 353 K/mm3 (150-400); RDW Coefficient Variation 12.0 % (11.7-14.2); RDW Standard Deviation 41.8 fL (35.1-46.3)
[2025-03-21 05:37] LABS: Alanine Aminotransfer (ALT/SGP 23 U/L (12-78); Albumin, Blood 3.8 g/dL (3.4-5.0); Albumin/Globulin Ratio 1.2 (0.8-1.8); Anion Gap 7 mmol/L (3-11); Aspartate Aminotrans (AST/SGOT 20 U/L (12-37); Bilirubin, Total 0.7 mg/dL (0.1-1.0); Blood Urea Nitrogen 8 mg/dL (8-24); CO2, Blood 30 mmol/L (21-32); Calcium, Blood 9.0 mg/dL (8.5-10.1); Chloride, Blood 106 mmol/L (98-108); Creatinine, Blood 0.70 mg/dL (0.40-1.00); Ethanol (Alcohol), Blood, Med <3 mg/dL; Globulin, Blood 3.2 g/dL (2.2-4.0); Glucose, Blood 151 mg/dL (70-99); Potassium, Blood 3.2 mmol/L (3.5-5.5); Sodium, Blood 140 mmol/L (136-145); Total Protein, Blood 7.0 g/dL (6.4-8.2)
[2025-03-21 10:26] VITALS: BP 96/76
[2025-03-21] MEDS ORDERED: OMEP20ER PO (10:26)
== END 2025-03-21 10:34 | disposition home or self-care (01) ==
LOC: ER 04:46
PROVIDERS: Emergency Medicine
DX: R10.11 Right upper quadrant pain (principal); E11.9 Type 2 diabetes mellitus without complications; J45.909 Unspecified asthma, uncomplicated; F17.210 Nicotine dependence, cigarettes, uncomplicated; Z79.899 Other long term (current) drug therapy; Z91.040 Latex allergy status
CPT/HCPCS: 76705; 80053; 80320; 83605; 83690; 85025; 96374; 99284-25; A9270; J1885